=== PATIENT | female | born 1985 ===

== ENCOUNTER 2025-03-10 12:53 | Outpatient (CLI) | payer OTHER | END 2025-03-10 12:54 | disposition home or self-care (01) | LOC: PRENATAL 12:53 | PROVIDERS: ATTEND Obstetrics & Gynecology Maternal & Fetal Medicine | DX: O44.00 Complete placenta previa NOS or without hemorrhage, unspecified trimester (principal); O09.529 Supervision of elderly multigravida, unspecified trimester; O28.1 Abnormal biochemical finding on antenatal screening of mother; Z14.8 Genetic carrier of other disease; Z3A.27 27 weeks gestation of pregnancy ==

== ENCOUNTER → 2025-04-20 11:02 | Outpatient (CLI) | payer OTHER | END | disposition home or self-care (01) | LOC: PRENATAL 11:02 | PROVIDERS: ATTEND Obstetrics & Gynecology Maternal & Fetal Medicine | DX: O26.849 Uterine size-date discrepancy, unspecified trimester (principal); O36.8199 Decreased fetal movements, unspecified trimester, other fetus; O09.529 Supervision of elderly multigravida, unspecified trimester; O28.1 Abnormal biochemical finding on antenatal screening of mother; Z14.8 Genetic carrier of other disease; O32.9XX0 Maternal care for malpresentation of fetus, unspecified, not applicable or unspecified; Z3A.32 32 weeks gestation of pregnancy ==